=== PATIENT | male | born 1980 | race African-American/Black ===

== ENCOUNTER 2023-11-18 16:27 | Emergency (ER) | payer OTHER, SELFPAY ==
--- NOTE | ~2023-11-18 | XR_ITS ---
EXAMINATION: XR chest 2V Exam Date/Time: 11/18/2023 16:55 NON DESTRUCTIVE TESTING TECHNICIAN HISTORY: CP 30 MINUTES PANTOGRAPH SETTER Comparison: None. RESULT: Lines, tubes, and devices: None. Lungs and pleura: Clear. Cardiomediastinal silhouette: Unremarkable. Other: No acute osseous or upper abdominal finding. IMPRESSION: No acute cardiopulmonary process. Reviewed, dictated and finalized at location K. DESTRUCTIVE TESTING TECHNICIAN
--- NOTE | 2023-11-18 16:28 | ECG_ITS ---
Measurements Intervals [place] Rate: 73 P: 41 HI: 155 QRS: 46 QRSD: 79 T: 31 QT: 357 QTc: 395 Interpretive Statements SINUS RHYTHM NONSPECIFIC ST AND T-WAVE ABNORMALITY NO PREVIOUS ECG AVAILABLE FOR COMPARISON Electronically Signed On 11-19-2023 13:15:18 STRATEGIC CLIENT EXECUTIVE by Mary Cohen M.D.
--- NOTE | 2023-11-18 16:43 | ED.GENADULT ---
HPI - General Adult General Chief complaint: Chest Pain Stated complaint: chest pain Source: patient Mode of arrival: ambulatory Limitations: no limitations History of Present Illness HPI narrative: Patient is a 43-year-old male with past medical history of asthma who presents department today by private vehicle for evaluation of chest pain that started about 10 minutes ago. Patient states that he had just left his doctor's office where he was seen for routine labs and he was driving and started having pain that was stabbing to the middle. He states that the pain has since subsided. He states that he had a little bit tingling in his left arm and his hands were sweaty. He denies cardiac history himself. 1st degree family relative with CAD. denies tobacco use. denies recent illness. denies pain with palpation. denies fever, chills, n/v/d, dizziness, headache, back pain. Review of Systems Review of Systems: CONSTITUTIONAL: Denies fever, chills .+sweaty hands ENT: Denies rhinorrhea, congestion, sore throat, or otalgia. CARDIOVASCULAR: +stabbing middle chest pain. Denies palpitations, or edema. RESPIRATORY: Denies cough or dyspnea. GASTROINTESTINAL: Denies abdominal pain, nausea, vomiting,. MUSCULOSKELETAL: Denies back pain, joint pain, or myalgia. NEUROLOGIC: +tingling sensation down his left arm. Denies headache, numbness, or weakness. All systems reviewed & are unremarkable except as noted in HPI and below Exam Narrative: BRIEF FOCUSED EXAM: GENERAL: Well-appearing, well-nourished, and in no acute distress.sittin up on the chair. HEAD: Normocephalic, atraumatic. CHEST: Clear to auscultation. No respiratory distress. no pain on palpation to chest. HEART: Regular rate and rhythm. Normal peripheral pulses. EXTREMITIES: No edema. SKIN: Warm, dry, no rash. NEURO: No focal deficits. Alert and oriented x3. PSYCH: Normal mood and affect. Course Vital Signs Vital signs: Vital Signs Temperature 97.3 F L 11/18/23 16:50 Pulse Rate 79 11/18/23 16:50 Respiratory Rate 16 11/18/23 16:50 Blood Pressure 133/90 11/18/23 16:50 Pulse Oximetry 100 11/18/23 16:50 Oxygen Delivery Room Air 11/18/23 16:50 Temperature 97.3 F L 11/18/23 16:50 Pulse Rate 79 11/18/23 16:50 Respiratory Rate 16 11/18/23 16:50 Blood Pressure 133/90 11/18/23 16:50 Pulse Oximetry 100 11/18/23 16:50 Oxygen Delivery Room Air 11/18/23 16:50 Medical Decision Making Vital Signs Vital Signs: Vital Signs Temperature 97.3 F L 11/18/23 16:50 Pulse Rate 79 11/18/23 16:50 Respiratory Rate 16 11/18/23 16:50 Blood Pressure 133/90 11/18/23 16:50 Pulse Oximetry 100 11/18/23 16:50 Oxygen Delivery Room Air 11/18/23 16:50 Temperature 97.3 F L 11/18/23 16:50 Pulse Rate 79 11/18/23 16:50 Respiratory Rate 16 11/18/23 16:50 Blood Pressure 133/90 11/18/23 16:50 Pulse Oximetry 100 11/18/23 16:50 Oxygen Delivery Room Air 11/18/23 16:50 Lab Data 11/18/23 16:47 11/18/23 16:47 Labs: Lab Results 11/18/23 Range/Units 16:47 WBC 7.2 (4.5-10.0) K/mm3 RBC 4.65 (4.6-6.20) M/mm3 Hgb 14.0 (14.0-18.0) g/dL Hct 44.7 (42.0-52.0) % MCV 96.1 (80-100) fl MCH 30.1 (26-34) pg MCHC 31.3 L (32-36) g/dl RDW 12.0 (11.5-14.5) % Plt Count 356 (150-375) k/mm3 MPV 8.7 (7.4-10.4) fl Immature Gran % (Auto) 0.1 (0-0.5) % Neut % (Auto) 47.4 (45.5-73.1) % Lymph % (Auto) 36.2 (18.3-44.2) % Harvey % (Auto) 7.8 (2.6-8.5) % Eos % (Auto) 7.2 H (0-4.4) % Baso % (Auto) 1.3 H (0.2-1.2) % Lymph # (Auto) 2.60 (0.9-3.2) K/mm3 Harvey # (Auto) 0.6 (0.1-0.6) K/mm3 Eos # (Auto) 0.5 H (0-0.3) K/mm3 Baso # (Auto) 0.1 (0.0-0.1) K/mm3 Abs Immat Gran (auto) 0.01 (0.00-0.031) K/mm3 Absolute Neuts (auto) 3.4 (1.3-6.7) K/mm3 Absolute Nucleated RBC 0.0 (0.0-0.012) K/mm3 Nucleated RBC % 0.0 (0.0-0.2) % PT 13.2 (11.1-14.7) S
[2023-11-18 16:50] VITALS: BP 133/90; PULSE 79; RESP 16; TEMP 36.3; O2SAT 100
[2023-11-18 16:56] LABS: Basophils Absolute Auto 0.1 K/mm3 (0.0-0.1); Basophils Percent Auto 1.3 % (0.2-1.2); Eosinophils Absolute Auto 0.5 K/mm3 (0-0.3); Eosinophils Percent Auto 7.2 % (0-4.4); Hematocrit 44.7 % (42.0-52.0); Immature Granulocyte Absolute 0.01 K/mm3 (0.00-0.031); Immature Granulocyte Percent A 0.1 % (0-0.5); Lymphocytes Percent Auto 36.2 % (18.3-44.2); Mean Corpuscular HGB Conc 31.3 g/dl (32-36); Mean Corpuscular Hemoglobin 30.1 pg (26-34); Mean Corpuscular Volume 96.1 fl (80-100); Mean Platelet Volume 8.7 fl (7.4-10.4); Monocytes Absolute Auto 0.6 K/mm3 (0.1-0.6); Monocytes Percent Auto 7.8 % (2.6-8.5); Neutrophils Absolute Auto 3.4 K/mm3 (1.3-6.7); Neutrophils Percent Auto 47.4 % (45.5-73.1); Platelet Count Result 356 k/mm3 (150-375); Red Blood Count 4.65 M/mm3 (4.6-6.20); White Blood Count 7.2 K/mm3 (4.5-10.0)
[2023-11-18 17:07] LABS: Prothrombin Time 13.2 Seconds (11.1-14.7)
[2023-11-18 17:08] LABS: Partial Thromboplastin Time 29.9 SECONDS (22.3-36.8)
[2023-11-18 17:11] LABS: Alanine Aminotransferase 26 U/L (6-50); Albumin Level 4.2 g/dL (3.5-5.1); Alkaline Phosphatase 47 U/L (38-126); Anion Gap 7 mmol/L (8-16); Aspartate Amino Transferase 38 U/L (17-59); Bilirubin,Total 0.7 mg/dL (0.2-1.3); Blood Urea Nitrogen 12 mg/dL (9-20); Calcium 8.9 mg/dL (8.4-10.2); Carbon Dioxide 27 mmol/L (22-30); Chloride 104 mmol/L (98-107); Estimated CRCL calculation 133 ml/min; Estimated Glomerular Filt Rate > 60; Glucose 81 mg/dL (65-110); Lipase 168 U/L (23-300); Potassium 4.2 mmol/L (3.4-5.0); Sodium 138 mmol/L (137-145)
[2023-11-18 17:16] LABS: Troponin I < 0.012 ng/mL (0.000-0.034)
== END 2023-11-18 19:35 | disposition left against medical advice (07) ==
LOC: ANHED 18:39
PROVIDERS: Emergency Provider Emergency Medicine
DX: R07.9 Chest pain, unspecified (principal); Z82.49 Family history of ischemic heart disease and other diseases of the circulatory system
CPT/HCPCS: 36415; 71046; 80053; 83690; 84484; 85025; 85610; 85730; 93005; 99199